=== PATIENT | female | born 1950 | race Caucasian/White ===

== ENCOUNTER → 2020-07-09 | Outpatient (CLI) | payer MEDICARE ==
--- NOTE | 2020-07-09 15:50 | RAD ---
Ultrasound thyroid HISTORY: Left thyroid nodule Sonographic examination thyroid was performed and multiple static images were obtained. The thyroid is diffusely heterogeneous. The right lower thyroid measures 4.6 x 1.5 x 1.9 cm. Left lower thyroid measures 5.4 x 2.1 x 2.0 cm. There is a small isoechoic nodule in the mid to upper right lobe of thyroid that measures 8 x 8 x 6 mm. There is an isoechoic nodule on the left that measures 1.4 x 1.1 x 1.0 cm. There is some echogenicity and shadowing in the mid left lobe of thyroid suggesting microcalcifications. The patient reportedly had a nodule in the mid left lobe of thyroid in the area of the calcifications seen in 2013. The isthmus appears normal and measures 3.6 mm in thickness. IMPRESSION: 1. Benign-appearing nodules bilaterally. 2. Nonspecific calcification of the left. 3. Diffusely heterogeneous thyroid. Recommend correlation with TSH and recommend a 6 month follow-up ultrasound. Electronically signed by: Robby Chavez III, MD (07/09/2020 3:47 PM) [facility]
== END ==
LOC: US 09:45
PROVIDERS: ATTEND Nurse Practitioner Family
DX: E04.2 Nontoxic multinodular goiter (principal)
CPT/HCPCS: 76536

== ENCOUNTER → 2020-08-06 | Outpatient (CLI) | payer MEDICARE ==
--- NOTE | 2020-08-07 08:30 | KCIC ---
Study: CR ESOPHAGRAM/BARIUM SWALLOW Clinical Indication: Difficulty swallowing liquids and solids. Voice changes.. Comparison: Correlation is made to a CT chest from 02/01/2013 Technique/Findings: The patient drank thin and thick barium while both upright and supine. Real time fluoroscopy was performed with obtainment of intermittent spot images. A half inch barium tablet was administered as well. With the patient upright, thick barium was administered via a cup. Esophageal dysmotility was observed with disorganized and tertiary contractions. Diminished stripping wave with contrast remaining in the esophageal lumen up to the junction of the proximal and middle thirds in between swallows. Small sliding hiatal hernia. Approximately 2 cm above the expected location of the gastroesophageal junction there was incomplete luminal distention with the barium tablet stagnant at this site for the majority of the exam but eventually passing into the stomach after approximately 15 minutes. No mucosal ulceration or luminal filling defect was seen at this location. No esophageal dilatation above this segment of narrowing. The patient was moved supine and thin barium given by cup. There was redemonstration of esophageal dysmotility. No reflux event was observed . IMPRESSION: 1. Esophageal dysmotility with tertiary contractions and a diminished stripping wave. The findings raise the question of long-standing reflux. 2. Incomplete distention of the esophageal lumen approximately 2 cm above the expected location of the gastroesophageal junction. No mass or ulcer was appreciated noting the limitations of fluoroscopy. A barium tablet was stagnant at this location for the majority of the exam despite repeated swallows but did eventually pass into the stomach after approximately 15 minutes. A peptic stricture is the leading consideration and could be further evaluated with endoscopy if deemed necessary. 3. Small sliding hiatal hernia. Electronically signed by: PATRICIA MATTA MD (08/07/2020 8:28 AM) [id number]
== END ==
LOC: KCIC 09:15
PROVIDERS: ATTEND Family Medicine
DX: K44.9 Diaphragmatic hernia without obstruction or gangrene (principal)
CPT/HCPCS: 74220

== ENCOUNTER → 2020-11-15 | Outpatient (CLI) | payer MEDICARE ==
--- NOTE | 2020-11-15 17:52 | KCIC ---
PROCEDURE: XR FOOT_RIGHT 2 VIEWS STUDY DATE: 11/15/2020 CLINICAL INDICATION / HISTORY: Reason: Right foot pain, kicked door stop. Pain 4th-5th toes. / Spl. Instructions: / History: . TECHNIQUE: AP, lateral views of the right foot. COMPARISON: None FINDINGS: No fracture or dislocation is identified. The bone density is normal. The joint space width s are maintained, and there are no erosions to suggest an inflammatory arthropathy. No soft tissue sw elling dorsum foot is present.. IMPRESSION: No acute osseous abnormality. Electronically signed by: Mackenzie Boyer MD (11/15/2020 5:49 PM) [id number]
== END ==
LOC: KCIC 11:44
PROVIDERS: ATTEND Family Medicine
DX: M79.671 Pain in right foot (principal); R06.00 Dyspnea, unspecified
CPT/HCPCS: 73620

== ENCOUNTER → 2022-02-07 | Outpatient (CLI) | payer MEDICARE ==
--- NOTE | 2022-02-07 15:12 | KCIC ---
EXAM: Lumbar spine MRI without contrast. HISTORY: Bowel and urinary incontinence. TECHNIQUE: Multiplanar, multisequence magnetic resonance imaging of the lumbar spine was performed wi thout contrast. COMPARISON: None. FINDINGS: There is mild lumbar hyperlordosis and scoliosis. There is 3 mm grade 1 anterolisthesis of L4 on L5 and 2 mm grade 1 anterolisthesis of L3 on L4. There is multilevel endplate remodeling. There is multilevel disc desiccation. There is a superior endplate Schmorl's node at T11. The conus termin ates at L1. There is no suspicious osseous lesion. There is no acute or subacute fracture. At L1-L2, there is no stenosis. At L2-L3, there is a disc bulge. There is mild central canal stenosis. At L3-L4, there is a disc bulge. There is moderate bilateral facet arthropathy. There is hypertrophy of the ligamentum flavum. There is grade 1 anterolisthesis. There is mild left foraminal stenosis. Th ere is mild to moderate central canal stenosis. At L4-L5, there is a shallow broad-based left lateral recess to foraminal disc protrusion and annular tear superimposed on a disc bulge and endplate remodeling. There is moderate bilateral facet arthrop athy. There is grade 1 anterolisthesis. There is mild central canal stenosis. At L5-S1, there is a disc bulge and endplate remodeling. There is mild bilateral facet arthropathy. T here is no stenosis. IMPRESSION: Multilevel degenerative change involving the lumbar spine, described in detail above. Thi s is associated with mild central canal stenosis at L2-L3, mild left foraminal and mild to moderate c entral canal stenosis at L3-L4, and mild central canal stenosis at L4-L5. Electronically signed by: Laura Solis MD (02/07/2022 3:10 PM) [id number]
== END ==
LOC: KCIC MRI 13:21
PROVIDERS: ATTEND Family Medicine
DX: M47.816 Spondylosis without myelopathy or radiculopathy, lumbar region (principal); M48.061 Spinal stenosis, lumbar region without neurogenic claudication; M51.27 Other intervertebral disc displacement, lumbosacral region; M48.8X7 Other specified spondylopathies, lumbosacral region; M43.16 Spondylolisthesis, lumbar region; M51.44 Schmorl's nodes, thoracic region; M41.86 Other forms of scoliosis, lumbar region; R15.9 Full incontinence of feces; R32 Unspecified urinary incontinence
CPT/HCPCS: 72148